=== PATIENT | female | born 1965 | race Caucasian/White ===

== ENCOUNTER 2017-03-26 20:29 | Emergency (ER) | payer MEDICAID ==
[~2017-03-26] VITALS: Ht 165.1 cm; Wt 63.0 kg
[2017-03-26 20:33] VITALS: BP 171/98
[2017-03-26] MEDS ORDERED: METOCLOPRAMIDE HCL 10MG TABLET PO ONE (21:45)
[2017-03-26] MEDS ORDERED: SUMATRIPTAN SUCCINATE 6MG/0.5ML VIAL SUBCUT ONE (21:45)
[2017-03-26] MEDS ORDERED: KETOROLAC 30MG/ML VIAL IM ONE (21:45)
== END 2017-03-26 21:55 | disposition home or self-care (01) ==
LOC: ER 21:01
DX: R51 Headache (principal); I10 Essential (primary) hypertension
CPT/HCPCS: 99283